=== PATIENT | female | born 1950 | race Caucasian/White ===

== ENCOUNTER 2018-02-21 09:39 | Outpatient (CLI) | payer MEDICARE, OTHER ==
--- NOTE | 2018-02-21 16:05 | Ultrasound Report ---
Reason: ABDOMINAL BLOATING,RUQ PAIN Procedure Date: 02/21/2018 Accession Number: [id number] / [id number] Procedure: US - Abdomen Limited CPT Code: FULL RESULT: EXAM: ABDOMEN ULTRASOUND LIMITED, RUQ EXAM DATE: 02/21/2018 10:42 AM. CLINICAL HISTORY: ABDOMINAL BLOATING,RUQ PAIN. COMPARISON: None. TECHNIQUE: Real-time scanning was performed with static images obtained. FINDINGS: Liver: Normal in size and mildly heterogeneous in echotexture. 14.6 cm. Main portal vein flow: Hepatopetal. Gallbladder: No stones, wall thickening, or sonographic Bryson's sign. Biliary System: CBD measures 4 mm. No intrahepatic or extrahepatic ductal dilatation. Free fluid: None. Right kidney: 9.5 cm. Unremarkable IMPRESSION: No cholelithiasis or cholecystitis. RADIA
== END 2018-02-21 09:40 | disposition home or self-care (01) ==
LOC: DI 09:39
PROVIDERS: ATTEND Physician Assistant
DX: R14.0 Abdominal distension (gaseous) (principal); R10.11 Right upper quadrant pain
CPT/HCPCS: 76705

== ENCOUNTER 2021-05-12 09:48 | Outpatient (CLI) | payer MEDICARE, OTHER ==
--- NOTE | 2021-05-12 14:20 | DEXA Report ---
PROCEDURE: Dexa Spine and/or Hip INDICATIONS: POST MENOPAUSAL TECHNIQUE: Dual energy x-ray absorptiometry (DXA) was performed on a Hipcricket System. Regions measur ed are the AP Spine, femoral neck, and if needed forearm. COMPARISON: None. FINDINGS: Lumbar Spine: Bone Mineral Density 1.032 g/cm/cm,T score -1.2, osteopenic. Left Hip: Bone Mineral Density 0.938 g/cm/cm,T score -0.6, normal. Left Femoral Neck: Bone Mineral Density 1.011 g/cm/cm, T score -0.2, normal. (T score greater or equal to -1.0: NORMAL) (T score from -1.1 to -2.4: OSTEOPENIA) (T score less than or equal to -2.5 to: OSTEOPOROSIS) Impression: Based on WHO criteria, the patient is osteopenic. Patients with diagnosis of osteoporosis or osteopenia should have regular bone mineral density assess ment. For those eligible for Medicare, routine testing is allowed once every 2 years. Testing frequ ency can be increased for patients who have rapidly progressing disease or for those who are receivin g medical therapy to restore bone mass. Reviewed by: Siddhartha Rajan MD on 05/12/2021 2:19 PM PDT Approved by: Siddhartha Rajan MD on 05/12/2021 2:19 PM PDT Station ID: [id number]
== END 2021-05-12 09:49 | disposition home or self-care (01) ==
LOC: DI 09:48
PROVIDERS: ATTEND Physician Assistant
DX: M85.88 Other specified disorders of bone density and structure, other site (principal); Z78.0 Asymptomatic menopausal state

== ENCOUNTER 2021-06-02 09:48 | Outpatient (CLI) | payer MEDICARE, OTHER ==
--- NOTE | 2021-06-02 16:15 | Mammography Report ---
BILATERAL DIGITAL SCREENING MAMMOGRAM 3D/2D: 06/02/2021 CLINICAL: Routine screening. Comparison is made to exam dated: 07/12/2014 mammogram - [facility]. There are scat tered fibroglandular elements in both breasts. No significant masses, calcifications, or other findings are seen in either breast. There has been no significant interval change. IMPRESSION: NEGATIVE There is no mammographic evidence of malignancy. A 1 year screening mammogram is recommended. This exam was interpreted at Station ID: [id number]. NOTE: For mammograms, a report in lay terms will be sent to the patient. Approximately 15% of breast malignancies will not be visualized mammographically. In the management of a palpable breast mass, a negative mammogram must not discourage biopsy of a clinically suspicious lesion. Electronically Signed By: Roro tomlin/franky:06/02/2021 13:20:32 ACR BI-RADS Category 1: Negative 3341F PARENCHYMAL PATTERN: (A) - The breast(s) demonstrate(s) scattered fibroglandular densities. BI-RADS CATEGORY: (1) - 1 RECOMMENDATION: (ANNUAL) - Recommend routine annual screening mammography. [id number] 1 year screening LATERALITY: (B)
== END 2021-06-02 09:49 | disposition home or self-care (01) ==
LOC: DI.S 09:48
PROVIDERS: ATTEND Physician Assistant
DX: Z12.31 Encounter for screening mammogram for malignant neoplasm of breast (principal)